=== PATIENT | female | born 1955 | race American Indian/Alaskan Native ===

== ENCOUNTER 2018-08-26 09:15 | Outpatient (CLI) | payer BC ==
[2018-08-26 10:02] LABS: Basophils % (Auto) 0.4 % (0.0-1.8); Eosinophils # (Auto) 0.2 K/mm3 (0.0-0.4); Eosinophils % (Auto) 2.6 % (0.0-4.3); Hematocrit 39.8 % (30.3-42.9); Hemoglobin 13.7 gm/dl (10.1-14.3); Lymphocytes # (Auto) 1.6 K/mm3 (1.2-5.4); Lymphocytes % (Auto) 18.4 % (13.4-35.0); Mean Corpuscular HGB Conc 34 % (30-34); Mean Corpuscular Volume 86 fl (79-97); Monocytes # (Auto) 0.5 K/mm3 (0.0-0.8); Monocytes % (Auto) 5.9 % (0.0-7.3); Platelet Count 273 K/mm3 (140-440); Red Blood Count 4.61 M/mm3 (3.65-5.03); Red Cell Distribution Width 13.5 % (13.2-15.2)
[2018-08-26 10:19] LABS: Alanine Aminotransferase 26 units/L (7-56); Albumin 4.6 g/dL (3.9-5); BUN/Creatinine Ratio 17; Blood Urea Nitrogen 10 mg/dL (7-17); Calcium 10.5 mg/dL (8.4-10.2); Hemolysis Index 4; LDL Cholesterol,Direct 104 mg/dL (50-130)
[2018-08-26 11:23] LABS: Chol/HDL Ratio 2.83 %; HDL Cholesterol 59 mg/dL (40-59)
== END 2018-08-26 09:16 | disposition home or self-care (01) ==
LOC: LAB 09:15
PROVIDERS: ATTEND Nurse Practitioner Gerontology
DX: I10 Essential (primary) hypertension (principal); E78.5 Hyperlipidemia, unspecified
CPT/HCPCS: 36415; 80053; 80061; 84443; 85025

== ENCOUNTER 2018-10-14 09:42 | Outpatient (CLI) | payer BC ==
--- NOTE | 2018-10-14 15:40 | Mammography Report ---
BILATERAL DIGITAL SCREENING MAMMOGRAM with CAD: 10/14/18 CLINICAL: Routine screening. COMPARISON:None available. However, a prior mammogram was apparently done at [place]. FINDINGS: The breasts are heterogeneously dense, which may obscure small masses. A right asymmetry on both views requires comparison with a prior mammogram or additional imaging.No architectural distortion or suspicious calcifications.The left breast is negative. IMPRESSION: Right asymmetry requiring further evaluation. BI-RADS CATEGORY: 0 -- Additional Evaluation Required RECOMMENDATION: Comparison with a previous mammogram. We will attempt to obtain a prior mammogram for comparison. If we do not obtain a prior mammogram within 30 days, a revised report will be issued recommending a recall for additional imaging. Please be advised that the patient should not schedule an appointment for return until adequate time (at least 2 weeks) has passed for us to obtain the prior mammogram. COMMENT: 1. Dense breast tissue, i.e., adenosis, fibrocystic changes, etc., may obscure an underlying neoplasm. 2. Approximately 10% of cancers are not detected with mammography. 3. A negative mammography report should not delay biopsy if a clinically suspicious mass is present. COMMENT: Patient follow-up letters are generated via our [employer] application.
--- NOTE | 2018-10-15 08:13 | Ultrasound Report ---
ULTRASOUND THYROID SCAN HISTORY: Thyroid disorder, abnormal lab values. COMPARISON: None at this facility. FINDINGS: The thyroid gland is borderline to mildly enlarged. The right lobe measures 5.4 x 1.7 x 1.8 cm. The left lobe measures 5.2 x 2.3 x 1.9 cm. The isthmus measures 0.6 cm. Within the right thyroid lobe, a 1.3 cm slightly hypoechoic nodule is identified at the inferior pole. Within the thyroid isthmus, there are 2 solid nodules measuring 1.0 cm and 1.3 cm. Within the left thyroid lobe, there are 4 nodules measuring 0.5 cm, 0.9 cm, 1.1 cm and 2.5 cm. No cervical adenopathy is demonstrated. IMPRESSION: Mildly enlarged thyroid gland with multiple nodules as described above. Findings are suggestive of a multinodular goiter.
== END 2018-10-14 09:43 | disposition home or self-care (01) ==
LOC: MAMMO 09:42
PROVIDERS: ATTEND Family Medicine
DX: Z12.31 Encounter for screening mammogram for malignant neoplasm of breast (principal); E04.2 Nontoxic multinodular goiter
CPT/HCPCS: 36415; 76536; 77067; 82310; 83036; 83970

== ENCOUNTER 2019-02-27 12:27 | Outpatient (CLI) | payer BC ==
[2019-02-27 13:21] LABS: Alanine Aminotransferase 23 units/L (7-56); Albumin 4.5 g/dL (3.9-5); BUN/Creatinine Ratio 20; Blood Urea Nitrogen 10 mg/dL (7-17); Calcium 10.7 mg/dL (8.4-10.2); Chol/HDL Ratio 2.92 %; HDL Cholesterol 55 mg/dL (40-59); Hemolysis Index 0; LDL Cholesterol,Direct 97 mg/dL (50-130)
== END 2019-02-27 12:28 | disposition home or self-care (01) ==
LOC: LAB 12:27
PROVIDERS: ATTEND Family Medicine
DX: R76.8 Other specified abnormal immunological findings in serum (principal); E78.5 Hyperlipidemia, unspecified; I10 Essential (primary) hypertension; E04.2 Nontoxic multinodular goiter
CPT/HCPCS: 36415; 80053; 80061; 84443; 86235; 86618

== ENCOUNTER 2019-03-25 08:15 | Day surgery (SDC) | payer BC ==
[2019-03-25] MEDS ORDERED: LIDOCAINE (1%) 10 MG/1 ML VIAL 20 ML MDV ONE (10:17)
[2019-03-25 11:14] VITALS: BP 135/72
--- NOTE | 2019-03-25 11:26 | Ultrasound Report ---
ULTRASOUND-GUIDED THYROID BIOPSY HISTORY: multiple thryoid nodules. multinodular goiter COMPARISON: 10/14/2018 PROCEDURE: The risks (including but not limited to bleeding and infection) and benefits were explain ed to the patient and informed consent was obtained. A time out procedure was performed. The proced ure site was prepped and draped in the usual sterile fashion and lidocaine was used for local anesthe meghana. Initial scan of the thyroid gland demonstrates multiple nodules as noted in the previous report. The dominant nodule in the superior left thyroid lobe measuring up to 2.4 cm was selected for biopsy. Usi ng ultrasound guidance, 2 fine-needle aspirations and one latex biopsy were obtained from the left th yroid lesion. The samples were deemed adequate by the pathologist on site. The patient tolerated the procedure well with no complications. IMPRESSION: Successful ultrasound-guided fine-needle aspiration and biopsy of the dominant left lobe nodule. Signer Name: Dionicio Gunter Jr, MD Signed: 03/25/2019 11:21 AM Workstation Name: [id number]
--- NOTE | 2019-03-25 11:30 | Short Stay Summary ---
Short Stay Documentation Date of service: 03/25/19 Narrative H&P: multinodular goiter found on physical exam - History Principal diagnosis: thyroid nodules - Allergies and Medications Current Medications: Allergies No Known Allergies Allergy (Unverified 08/26/18 09:15) Home Medications Medication Instructions Recorded Confirmed Last Taken Type Amlodipine Besylate/Benazepril 1 tab PO DAILY 03/25/19 03/25/19 03/25/19 07:00 History [Amlodipine-Benazepril 10-40 mg] Aspirin [Adult Aspirin] 81 mg PO DAILY 03/25/19 03/25/19 03/25/19 07:00 History Atenolol [Tenormin] 25 mg PO DAILY 03/25/19 03/25/19 03/25/19 07:00 History AtorvaSTATin [Lipitor] 20 mg PO DAILY 03/25/19 03/25/19 03/25/19 07:00 History [place]ine-3 Fatty Acids/Fish Oil [Fish 1,000 mg PO DAILY 03/25/19 03/25/19 03/25/19 07:00 History Oil] - Physical exam General appearance: no acute distress HEENT: Other (slight full thyroid gland) Lungs: Clear to auscultation Heart: Regular rate - Brief post op/procedure progress note Date of procedure: 03/25/19 Pre-op diagnosis: thyroid nodules Post-op diagnosis: same Procedure: US guided thyroid biopsy, left Anesthesia: local Findings: see report Surgeon: DANIEL FULLER Estimated blood loss: none Pathology: list (FNA x 2, rotex biopsy) Specimen disposition: to lab Condition: stable - Hospital course Hospital course: uneventful - Disposition Condition at discharge: Good Disposition: DC-01 TO HOME OR SELFCARE Short Stay Discharge Plan Follow up with: HARMAN HAWK MD [Primary Care Provider] - 7 Days Forms: Thyroid Biopsy DC Instructions
== END 2019-03-25 12:00 | disposition home or self-care (01) ==
LOC: CATHLABREC 08:15 → EDSTATUS 09:00 → CATHLABREC 12:00
PROVIDERS: ATTEND Family Medicine
DX: E04.2 Nontoxic multinodular goiter (principal); E78.00 Pure hypercholesterolemia, unspecified; I10 Essential (primary) hypertension; K21.9 Gastro-esophageal reflux disease without esophagitis; M19.90 Unspecified osteoarthritis, unspecified site; Z79.899 Other long term (current) drug therapy; Z98.51 Tubal ligation status; Z98.890 Other specified postprocedural states; Z86.2 Personal history of diseases of the blood and blood-forming organs and certain disorders involving the immune mechanism
CPT/HCPCS: 10005; 60100; 76942; 88112; 88172; 88173; 88305

== ENCOUNTER 2019-03-31 09:22 | Outpatient (CLI) | payer BC | END 2019-03-31 09:23 | disposition home or self-care (01) | LOC: LAB 09:22 | PROVIDERS: ATTEND Family Medicine | DX: R73.9 Hyperglycemia, unspecified (principal); E83.52 Hypercalcemia | CPT/HCPCS: 36415; 82330; 83036; 83970 ==

== ENCOUNTER 2019-07-15 10:23 | Outpatient (CLI) | payer BC | END 2019-07-15 10:24 | disposition home or self-care (01) | LOC: LAB 10:23 | PROVIDERS: ATTEND Family Medicine | DX: L85.3 Xerosis cutis (principal); E78.5 Hyperlipidemia, unspecified | CPT/HCPCS: 36415; 82306; 82330; 83970 ==

== ENCOUNTER 2019-10-21 08:29 | Outpatient (CLI) | payer BC ==
--- NOTE | 2019-10-21 09:41 | Mammography Report ---
DIGITAL SCREENING MAMMOGRAM WITH CAD, 10/21/2019 INDICATION: Routine screening mammography. TECHNIQUE: Digital bilateral 2D mammography was obtained in the craniocaudal and mediolateral obliq ue projections. This examination was interpreted with the benefit of Computer-Aided Detection analysi s. COMPARISON: 10/14/2018 FINDINGS: Breast Density: The breasts are almost entirely fatty. There is no evidence of dominant mass, suspicious calcifications or architectural distortion in eithe r breast. IMPRESSION: No mammographic evidence of malignancy. Follow up recommendation: Routine yearly BI-RADS Category 1: Negative. A "normal" or negative report should not discourage follow up or biopsy of a clinically significant f inding. A written summary of these findings will be mailed to the patient. The patient will be entered into a mammography reporting system which will generate a reminder letter for the patient's next appointmen t at the appropriate interval. The [employer] recommends yearly mammograms starting at age 40 and continuing as l stephanie as a woman is in good health. Breast MRI is recommended for women with an approximate 20-25% or greater lifetime risk of breast cancer, including women with a strong family history of breast or ova perez cancer or who have been treated for Hodgkin's disease. Signer Name: Jason Lowery MD Signed: 10/21/2019 9:37 AM Workstation Name: [id number]
[2019-10-21 10:55] LABS: Hepatitis B Surface Antigen Non-Reactive (Negative); Hepatitis C Virus Antibody Non-Reactive (NonReactive)
== END 2019-10-21 08:30 | disposition home or self-care (01) ==
LOC: MAMMO 08:29
PROVIDERS: ATTEND Family Medicine
DX: Z12.31 Encounter for screening mammogram for malignant neoplasm of breast (principal); Z01.419 Encounter for gynecological examination (general) (routine) without abnormal findings
CPT/HCPCS: 36415; 77067; 80074; 86592; 86689

== ENCOUNTER 2019-12-01 07:38 | Day surgery (SDC) | payer BC ==
[~2019-12-01 07:38] MED LIST: SODIUM CHLORIDE 0.9% 1000 ML 1,000 ML IV SCH
--- NOTE | 2019-12-01 08:45 | Anesthesia Consultation ---
Anesthesia Consult and Med Hx Date of service: 12/01/19 - Airway Anesthetic Teeth Evaluation: Good ROM Head & Neck: Adequate Mental/Hyoid Distance: Adequate Mallampati Class: Class II Intubation Access Assessment: Probably Good - Pulmonary Exam CTA: Yes - Cardiac Exam Cardiac Exam: RRR - Pre-Operative Health Status ASA Pre-Surgery Classification: ASA2 Proposed Anesthetic Plan: MAC - Pulmonary Hx Smoking: No Hx Respiratory Symptoms: No - Cardiovascular System Hx Hypertension: Yes (took antihypertensives this morning) Hx Heart Attack/AMI: No Hx Percutaneous Transluminal Coronary Angioplasty (PTCA): No - Central Nervous System CVA: No - Endocrine Hx Renal Disease: No Hx Liver Disease: No Hx Insulin Dependent Diabetes: No Hx Non-Insulin Dependent Diabetes: No Hx Hypothyroidism: Yes (recent diagnosis, no meds ) - Other Systems Hx Obesity: Yes (BMI 32) - Additional Comments Anesthesia Medical History Comments: No hx anesthetic complications.
--- NOTE | 2019-12-01 08:45 | Anesthesia Day of Surgery ---
Anesthesia Day of Surgery - Day of Surgery Patient Examined: Yes Patient H&P Reviewed: Yes Patient is NPO: Yes Beta Blockers: Yes (atenolol today AM)
[2019-12-01] MEDS ORDERED: propofoL 200 MG/20 ML VIAL IV ONE (09:13)
--- NOTE | 2019-12-01 09:51 | Short Stay Summary ---
Short Stay Documentation Date of service: 12/01/19 Narrative H&P: The patient presents for surveillance colonoscopy. She had adenomatous polyps at her last study 5 years ago. No FH of colon cancer or polyps. - History Past Medical History: hypertension, hyperlipidemia, other (Hyperthyroidism) Past Surgical History: Other (Tubal ligation) Social history: , lives with family, no smoking, no alcohol abuse - Allergies and Medications Current Medications: Allergies No Known Allergies Allergy (Unverified 08/26/18 09:15) Home Medications Medication Instructions Recorded Confirmed Last Taken Type Amlodipine Besylate/Benazepril 1 tab PO DAILY 03/25/19 12/01/19 12/01/19 06:00 History [Amlodipine-Benazepril 10-40 mg] Aspirin [Adult Aspirin] 81 mg PO DAILY 03/25/19 12/01/19 11/26/19 History AtorvaSTATin [Lipitor] 20 mg PO DAILY 03/25/19 12/01/19 11/30/19 20:00 History [place]-3 Fatty Acids/Fish Oil [Fish 1,000 mg PO DAILY 03/25/19 12/01/19 11/24/19 History Oil] atenoloL [Tenormin] 25 mg PO DAILY 03/25/19 12/01/19 12/01/19 05:00 History Active Medications Sodium Chloride (Nacl 0.9% 1000 Ml) 1,000 mls @ 50 mls/hr IV DIRECT NIRMALA Last Admin: 12/01/19 09:14 Dose: 50 mls/hr Documented by: - Physical exam General appearance: no acute distress, well-nourished Integumentary: no rash, no growths, no abnormal pigmentation HEENT: PERRLA, EOMI, Mucous membr. moist/pink Lungs: Clear to auscultation, Normal air movement Breasts: deferred Heart: Regular rate, Normal S1, Normal S2, No murmurs Gastrointestinal: normoactive bowel sounds, no tenderness, no distended, no masses, no organomegaly Female Genitourinary: deferred Rectal Exam: normal exam-external/orifice, no mass Extremities: no ischemia, pulses intact, pulses symmetrical, No edema, normal temperature, normal color, Full ROM Neurological: Normal gait, Normal speech, Strength at 5/5 X4 ext, Normal tone, Sensation intact, Cranial nerves 3-12 NL - Brief post op/procedure progress note Date of procedure: 12/01/19 Findings: see dictation Estimated blood loss: none Pathology: list (sigmoid colon polyp) Specimen disposition: to lab Condition: stable - Disposition Condition at discharge: Good Disposition: DC-01 TO HOME OR SELFCARE - Discharge Diagnoses (1) History of colonic polyps Status: Acute Short Stay Discharge Plan Activity: other (no driving for 24 hours) Weight Bearing Status: Weight Bear as Tolerated Diet: regular Follow up with: HARMAN HAWK MD [Primary Care Provider] - 7 Days
--- NOTE | 2019-12-01 09:54 | Operative Report ---
Operative Report Operative Report: Date of procedure: 12/01/2019 Preprocedure diagnosis: History of colon polyps. Last study 5 years ago. Post procedure diagnosis: 6 mm sessile polyp in the sigmoid colon. Procedure: Colonoscopy to the cecum with cold snare polypectomy Endoscopist: Dr. Burgess Anesthesia: Monitored anesthesia care per anesthesia department Estimated blood loss: 0 Medications: Monitored anesthesia care. See separate report by anesthesia for details. After careful discussion of the nature and purpose of the procedure as well as details of the technique risks benefits and alternatives the patient gave consent. Please see recent history and physical from the office. The patient was placed in the left lateral decubitus position and medicated per anesthesia. A rectal exam was performed sphincter tone was normal there were no masses palpable. The [employer] 570 scope was passed transanally and advanced under continuous direct vision without difficulty to the cecum. The colon was well prepared. The cecum was normal. The ascending colon was normal and on forward and retroflexed views. The transverse colon and descending colon were normal. There was a 6 mm sessile polyp in the proximal sigmoid colon which was removed with the cold snare. The polyp was retrieved by suction. The rectum was normal on forward and retroflexed views. The procedure was well-tolerated overall and the patient was observed in recovery. Conclusions: Small, benign-appearing sigmoid polyp. Normal colon otherwise to the cecum. Plan: Await pathology. Follow-up colonoscopy in 5 years. Signed electronically: Nas Burgess M.D.
[2019-12-01 10:40] VITALS: BP 122/67
--- NOTE | 2019-12-01 12:51 | Post Anesthesia Evaluation ---
- Post Anesthesia Evaluation Patient Participated: Yes Airway Patent: Yes Stable Respiratory Function: Yes Nausea/Vomiting: No Temp > 96.8F: Yes Pain Manageable: Yes Adequeate Hydration: Yes Anesthesia Complications: No
== END 2019-12-01 07:39 | disposition home or self-care (01) ==
LOC: GIO 07:38
PROVIDERS: ATTEND Internal Medicine Gastroenterology
DX: Z12.11 Encounter for screening for malignant neoplasm of colon (principal); D12.5 Benign neoplasm of sigmoid colon; E78.00 Pure hypercholesterolemia, unspecified; I10 Essential (primary) hypertension; K21.9 Gastro-esophageal reflux disease without esophagitis; E66.9 Obesity, unspecified; M19.90 Unspecified osteoarthritis, unspecified site; E03.9 Hypothyroidism, unspecified; Z86.010 Personal history of colon polyps; Z79.899 Other long term (current) drug therapy; Z79.82 Long term (current) use of aspirin; Z98.51 Tubal ligation status; Z68.32 Body mass index [BMI] 32.0-32.9, adult; Z98.890 Other specified postprocedural states; Z86.2 Personal history of diseases of the blood and blood-forming organs and certain disorders involving the immune mechanism
CPT/HCPCS: 45385; 88305; J2704; J7030